=== PATIENT | female | born 1970 | race Two or more races ===

== ENCOUNTER 2025-02-05 15:41 | Emergency (ER) | payer MEDICARE, MEDICAID, SELFPAY ==
[2025-02-05 15:45] VITALS: BP 100/55; PULSE 75; RESP 16; TEMP 36.7; O2SAT 98; BMI 25.8
--- NOTE | 2025-02-05 17:16 | PC.NURSE ---
Addendum entered by Stephie Daly RN 02/05/25 17:22: alerted by registration pt had left @ 1618 Original Note: LATE ENTRY During triage, patient asking if hospital had ENT services. Explained to patient that ENT not available here, however provider inside will be able to evaluate and either refer patient or facilitate transport to hospital w/ ENT services. Patient verbalized understanding. Current [facility] provider not available during patient's triage. Contacted by registration staff patient had decided to leave ED. Patient observed leaving w/ steady gait.
== END 2025-02-05 17:23 | disposition left against medical advice (07) ==
PROVIDERS: Emergency Provider Emergency Medicine
DX: T17.1XXA Foreign body in nostril, initial encounter (principal); X58.XXXA Exposure to other specified factors, initial encounter; Z53.21 Procedure and treatment not carried out due to patient leaving prior to being seen by health care provider
CPT/HCPCS: 99281